=== PATIENT | male | born 1995 | race Caucasian/White ===

== ENCOUNTER 2016-11-29 17:55 | Emergency (ER) | payer OTHER ==
[2016-11-29 18:00] VITALS: BMI 19.5
[2016-11-29] MEDS ORDERED: Sodium Chloride 0.9% 1,000 ML IV STA (18:12)
[2016-11-29 18:18] LABS: URINE BILIRUBIN NEGATIVE (NEGATIVE); URINE BLOOD LARGE (NEGATIVE); URINE GLUCOSE (UA) NEGATIVE (NEGATIVE); URINE LEUKOCYTE ESTERASE NEGATIVE Leu/uL (NEGATIVE); URINE NITRATE NEGATIVE (NEGATIVE); URINE PROTEIN TRACE mg/dL (<30 mg/dL); URINE UROBILINOGEN 0.2 E.U./dL (<1 E.U./dL)
--- NOTE | 2016-11-29 18:18 | ED PDOC ---
Arrival/HPI - General Chief Complaint: Male Genitourinary Time Seen by Provider: 11/29/16 18:11 Historian: Patient - History of Present Illness Narrative History of Present Illness (Text): 11/29/16 18:11 Hiwot Wilburn is a 21 year old male, whose past medical history includes renal stones, who presents to the emergency department complaining of right flank pain radiating to his right lower quadrant since last night. Patient notes that these symptoms are identical to past renal colic symptoms. Patient has no other complaints at this time. Time/Duration: 24 hours Symptom Onset: Gradual Symptom Course: Unchanged Activities at Onset: Light Context: Home Past Medical History - Provider Review Nursing Documentation Reviewed: Yes - Infectious Disease Hx of Infectious Diseases: None - Psychiatric Hx Substance Use: No - Surgical History Hx Appendectomy: Yes - Anesthesia Hx Anesthesia: Yes Hx Anesthesia Reactions: No Hx Malignant Hyperthermia: No Family/Social History - Physician Review Nursing Documentation Reviewed: Yes Family/Social History: No Known Family HX Smoking Status: Current Some Days Smoker Hx Alcohol Use: No Hx Substance Use: No Allergies/Home Meds Allergies/Adverse Reactions: Allergies No Known Allergies Allergy (Verified 11/29/16 18:00) Physical Exam - Physical Exam Narrative Physical Exam (Text): - Review of Systems Constitutional: Normal. absent: Fatigue, Weight Change, Fevers Eyes: Normal ENT: Normal Respiratory: Normal absent: SOB, Cough, Sputum Cardiovascular: Normal absent: Chest pain, Palpitations, Syncope Gastrointestinal: Normal absent: Abdominal pain, Diarrhea, Nausea, Vomiting Genitourinary: Normal. absent: Dysuria, Frequency, Hematuria Musculoskeletal: Right flank pain radiating to right lower quadrant. absent: Arthralgias, Neck Pain Skin: Normal Neurological: Normal absent: Focal Weakness Endocrine: Normal Hemo/Lymphatic: Normal Psychiatric: Normal - Physical exam Patient appears age appropriate, speaking full sentences without difficulty. - Systems Exam Head: Present: Atraumatic, Normocephalic Pupils: Present: PERRL Extraocular Muscles: Present: EOMI Conjunctiva: Present: Normal Mouth: Present: Moist Mucous Membranes Neck: Present: Normal Range of Motion. No: MIDLINE TENDERNESS, Paraspinal Tenderness Respiratory/Chest: Present: Clear to Auscultation, Good Air Exchange. No: Respiratory Distress, Accessory Muscle Use, Tachypnic Cardiovascular: Present: Regular Rate and Rhythm, Normal S1, S2, Peripheral Pulses Present. No: Murmurs Abdomen: Right flank pain with palpation. No: Tenderness, Peritoneal Signs, Rebound, Guarding, Distention Back: Present: Normal Inspection. No: Midline Tenderness, Paraspinal Tenderness Upper Extremity: Present: Normal Inspection. No: Cyanosis, Edema Lower Extremity: Present: Normal Inspection. No: Edema Neurological: Present: GCS=15, Speech Normal, cranial nerves II through XII fully intact with no cerebellar abnormality, neuro-sensory fully intact. No focal neurological deficits. Skin: Present: Warm, Dry, Normal Color. No: Rashes Lymphatic: Present: OX3, NI, NC Psychiatric: Present: Alert, Oriented x 3, Normal Insight, Normal Concentration Vital Signs Reviewed: Yes Vital Signs Temp Pulse Resp BP Pulse Ox 11/29/16 20:45 98.1 F 88 16 99 11/29/16 18:02 98.6 F 84 18 127/84 96 Temperature: Afebrile Blood Pressure: Normal Pulse: Regular Respiratory Rate: Normal Appearance: Positive for: Well-Appearing, Non-Toxic, Comfortable Pain Distress: None Mental Status: Positive for: Alert and Oriented X 3 Medical Decision Making ED Course and Treatment: 11/29/16 18:11 Impression: 21 year old male complaining of right flank pain radiating to right lower abdominal quadrant since last night. Pt has R. flank discomfort. Plan: -- Abdomen and Pelvis CT w/o contrast -- Urinalysis -- Labs -- Toradol and IV fluids -- Reassess and disposition Prior Visits: Notes and results from previous visits were reviewed. Patient last seen in the ED on 03/08/16 for right flank pain for 2 days. Patient was discharged home. Progress Notes: 11/29/16 22:08 COMPARISON: CT - ABD PELVIS W/O PO OR IV CONT 03/08/2016 10:45:37 PM FINDINGS: Lower thorax: No acute findings. ABDOMEN: Liver: Unremarkable. Gallbladder and bile ducts: No calcified stones. No ductal dilation. Pancreas: Unremarkable. No ductal dilation. Spleen: No splenomegaly. Adrenals: No mass. Kidneys and ureters: 0.8 cm calculus within RIGHT kidney. No hydronephrosis. Stomach and bowel: No definite mural thickening. No obstruction. Appendix: Appendectomy. PELVIS: Bladder: Unremarkable. No stones. Reproductive: Unremarkable as visualized. ABDOMEN and PELVIS: Intraperitoneal space: No significant fluid collection. No free air. Bones/joints: No acute fracture. Soft tissues: Unremarkable. Vasculature: Unremarkable. No aneurysm. Lymph nodes: No pathologically enlarged lymph nodes. IMPRESSION: 1. Nonobstructing renal calculus. 2. Incidental/non-acute findings are described above. Dictated By: Tyree Arroyo MD Dictated Date/Time: 11/29/162116 Signed By: Tyree Arroyo MD Date Signed: 2116 On reeval, pt states he feels well and that his pain resolved. No n/v Urinating without difficulty states he feels comfortable being dc'd home with outpatient f/u Pt states he understands to return to the ER right away for new or worsening symptoms or for inability to f/u with PMD or specialist as instructed. Patient states that he fully agrees with and understands discharge instructions. States that he agrees with the plan and disposition. Verbalized and repeated discharge instructions and plan. I have given the patient opportunity to ask any additional questions. - Lab Interpretations Lab Results: 11/29/16 18:20 11/29/16 18:20 Lab Results 11/29/16 18:20: Sodium 141, Potassium 4.1, Chloride 104, Carbon Dioxide 25, Anion Gap 16, BUN 13, Creatinine 0.7, Est GFR ( Amer) > 60, Est GFR (Non- Af Amer) > 60, Random Glucose 82, Calcium 9.4, Total Bilirubin 0.9, AST 20, ALT 31, Alkaline Phosphatase 77, Total Protein 7.1, Albumin 4.5, Globulin 2.6, Albumin/Globulin Ratio 1.8 11/29/16 18:20: WBC 10.9, RBC 5.27, Hgb 15.9, Hct 44.9, MCV 85.2, MCH 30.2, MCHC 35.4, RDW 12.3, Plt Count 324, MPV 8.5, Gran % 55.2, Lymph % (Auto) 30.0, [place] % (Auto) 6.9 H, Eos % (Auto) 7.6 H, Baso % (Auto) 0.3, Gran # 6.00, Lymph # 3.3, [place] # 0.8 H, Eos # 0.8 H, Baso # 0.03 11/29/16 18:05: Urine Color Yellow, Urine Appearance Clear, Urine pH 6.0, Ur Specific [place] >= 1.030, Urine Protein Trace H, Urine Glucose (UA) Negative, Urine Ketones Negative, Urine Blood Large H, Urine Nitrate Negative, Urine Bilirubin Negative, Urine Urobilinogen 0.2, Ur Leukocyte Esterase Negative, Urine RBC 25 - 30, Urine WBC 1 - 3, Ur Epithelial Cells 1 - 3, Urine Bacteria Mod I have reviewed the lab results: Yes - RAD Interpretation Radiology Orders: 11/29/16 18:12 ABD & PELVIS W/O PO OR IV CONT [CT] Stat - Medication Orders Current Medication Orders: Discontinued Medications Sodium Chloride (Sodium Chloride 0.9%) 1,000 mls @ 1,000 mls/hr IV .Q1H STA Stop: 11/29/16 19:11 Last Admin: 11/29/16 18:25 Dose: 1,000 mls/hr Ketorolac Tromethamine (Toradol) 30 mg IVP STAT STA Stop: 11/29/16 18:13 Last Admin: 11/29/16 18:25 Dose: 30 mg - Scribe Statement The provider has reviewed the documentation as recorded by the Tran Rosas Provider Scribe Attestation: All medical record entries made by the Tran were at my direction and personally dictated by me. I have reviewed the chart and agree that the record accurately reflects my personal performance of the history, physical exam, medical decision making, and the department course for this patient. I have also personally directed, reviewed, and agree with the discharge instructions and disposition. Disposition/Present on Arrival - Present on Arrival Any Indicators Present on Arrival: No History of DVT/PE: No History of Uncontrolled Diabetes: No Urinary Catheter: No History of Decub. Ulcer: No History Surgical Site Infection Following: None - Disposition Have Diagnosis and Disposition been Completed?: Yes Diagnosis: Renal colic Disposition: HOME/ ROUTINE Disposition Time: 22:17 Patient Plan: Discharge Condition: GOOD Discharge Instructions (ExitCare): Renal Colic (ED) Additional Instructions: PLEASE RETURN TO THE EMERGENCY DEPARTMENT FOR NEW OR WORSENING SYMPTOMS. RETURN RIGHT AWAY IF YOU CANNOT FOLLOW UP WITH YOUR PRIMARY CARE DOCTOR, CLINIC, OR SPECIALIST IN 1-2 DAYS. Prescriptions: Ibuprofen [Motrin] 600 mg PO Q8 PRN #12 tab PRN Reason: Pain, Moderate (4-7) Tamsulosin [Flomax] 0.4 mg PO DAILY #4 cap Referrals: Segun Davis MD [Staff Provider] - Follow up with primary Joao Florence MD [Staff Provider] - Follow up with primary Forms: [employer] (Belizean)
[2016-11-29 18:29] LABS: BASO # 0.03 K/mm3 (0.0-2.0); BASO % 0.3 % (0.0-3.0); EOS # 0.8 (0.0-0.7); EOS % 7.6 % (1.5-5.0); GRAN % 55.2 % (50.0-68.0); HEMOGLOBIN 15.9 g/dL (14.0-18.0); LYMPH # 3.3 (1.2-3.4); MEAN CELL VOLUME 85.2 fl (80.0-105.0); MEAN CORPUSCULAR HEMOGLOBIN 30.2 pg (25.0-35.0); MEAN CORPUSCULAR HGB CONC 35.4 g/dl (31.0-37.0); MEAN PLATELET VOLUME 8.5 fl (7.0-11.0); MONO # 0.8 (0.1-0.6); MONO % 6.9 % (1.0-6.0); PLATELET COUNT 324 10^3/uL (120.0-450.0); RBC 5.27 10^6/uL (3.5-6.1); RED CELL DISTRIBUTION WIDTH 12.3 % (11.5-14.5); WHITE BLOOD COUNT 10.9 10^3/ul (4.5-11.0)
[2016-11-29 18:35] LABS: URINE APPEARANCE CLEAR (CLEAR); URINE COLOR YELLOW (YELLOW)
[2016-11-29 18:43] LABS: ALB/GLOB RATIO 1.8 (1.1-1.8); ALBUMIN 4.5 g/dL (3.0-4.8); ALT/SGPT 31 U/L (7-56); AST/SGOT 20 U/L (15-59); BLOOD UREA NITROGEN 13 mg/dL (7-21); CALCIUM 9.4 mg/dL (8.4-10.5); GFR AFRICAN-AMERICAN > 60; GFR NON-AFRICAN AMERICAN > 60
[2016-11-29 19:00] LABS: URINE BACTERIA MOD (NEG); URINE RBC 25 - 30 /hpf (0-2)
[2016-11-29 20:46] VITALS: TEMP 98.1
--- NOTE | 2016-11-29 21:17 | CT ---
EXAM: CT Abdomen and Pelvis Without Intravenous Contrast CLINICAL HISTORY: 21 years old, male; Pain; Abdominal pain; Localized; Right; Prior surgery; Surgery type: Appendectomy; Additional info: Renal colic TECHNIQUE: Axial computed tomography images of the abdomen and pelvis without intravenous contrast. All CT scans at this facility use one or more dose reduction techniques, viz.: automated exposure control; ma/kV adjustment per patient size (including targeted exams where dose is matched to indication; i.e. head); or iterative reconstruction technique. Coronal and sagittal reformatted images were created and reviewed. COMPARISON: CT - ABD PELVIS W/O PO OR IV CONT 03/08/2016 10:45:37 PM FINDINGS: Lower thorax: No acute findings. ABDOMEN: Liver: Unremarkable. Gallbladder and bile ducts: No calcified stones. No ductal dilation. Pancreas: Unremarkable. No ductal dilation. Spleen: No splenomegaly. Adrenals: No mass. Kidneys and ureters: 0.8 cm calculus within RIGHT kidney. No hydronephrosis. Stomach and bowel: No definite mural thickening. No obstruction. Appendix: Appendectomy. PELVIS: Bladder: Unremarkable. No stones. Reproductive: Unremarkable as visualized. ABDOMEN and PELVIS: Intraperitoneal space: No significant fluid collection. No free air. Bones/joints: No acute fracture. Soft tissues: Unremarkable. Vasculature: Unremarkable. No aneurysm. Lymph nodes: No pathologically enlarged lymph nodes. IMPRESSION: 1. Nonobstructing renal calculus. 2. Incidental/non-acute findings are described above.
[2016-11-29 22:34] VITALS: BP 119/68; PULSE 61
[2016-11-29 22:48] VITALS: RESP 16; O2SAT 98
== END 2016-11-29 22:47 | disposition home or self-care (01) ==
LOC: ED 17:55
DX: N23 Unspecified renal colic (principal)
CPT/HCPCS: 74176; 80053; 81001; 85025; 96374; 99284; J1885; J7040

== ENCOUNTER 2016-11-30 12:32 | Emergency (ER) | payer OTHER ==
[2016-11-30 12:33] VITALS: BMI 19.5
== END 2016-11-30 12:41 | disposition left against medical advice (07) ==
LOC: ED 12:32
DX: Z02.89 Encounter for other administrative examinations (principal); R10.9 Unspecified abdominal pain

== ENCOUNTER 2016-12-03 23:25 | Emergency (ER) | payer OTHER ==
[2016-12-03 23:26] VITALS: BMI 19.5
[2016-12-04] MEDS ORDERED: Lidocaine 5% Patch TD STA (00:28)
--- NOTE | 2016-12-04 00:33 | ED PDOC ---
Arrival/HPI - General Chief Complaint: Back Pain Time Seen by Provider: 12/04/16 00:17 Historian: Patient - History of Present Illness Narrative History of Present Illness (Text): 12/04/16 00:25 Hiwot Wilburn is a 21 year old male, whose past medical history includes renal stones, presents to the emergency department complaining of right lower back pain since four days ago. Patient was seen on 11/29/2016 for the pain; he had a CT a/p showing an 8mm renal nonobstructive stone in the kidney and was d/c on ibuprofen and flomax and f/u . He says he was unable to f/u and is not taking any medication, including the ibuprofen. He reports persistence of pain throughout the day and radiates down his right leg. Patient notes having a subjective and mild dysuria. Patient denies fall, trauma, chest pain, shortness of breath, headache, chills, cough, nausea, vomiting, diarrhea, bowel or bladder incontinence/retention, or other complaints. Time/Duration: < week (four days) Symptom Onset: Sudden Symptom Course: Unchanged Modifying Factors (Text): pain radiates down the right leg Associated Symptoms (Text): fever and dysuria Past Medical History - Provider Review Nursing Documentation Reviewed: Yes - Infectious Disease Hx of Infectious Diseases: None - Psychiatric Hx Substance Use: No - Surgical History Hx Appendectomy: Yes - Anesthesia Hx Anesthesia: Yes Hx Anesthesia Reactions: No Hx Malignant Hyperthermia: No Family/Social History - Physician Review Nursing Documentation Reviewed: Yes Family/Social History: Unknown Family HX Smoking Status: Current Some Days Smoker Hx Alcohol Use: No Hx Substance Use: No Allergies/Home Meds Allergies/Adverse Reactions: Allergies No Known Allergies Allergy (Verified 11/29/16 18:00) Review of Systems - Review of Systems Constitutional: Fevers (subjective) Respiratory: absent: SOB Cardiovascular: absent: Chest Pain Gastrointestinal: Abdominal Pain (right lateral side). absent: Nausea, Vomiting Genitourinary Male: Dysuria Musculoskeletal: Back Pain (right lower side) Neurological: absent: Headache Physical Exam Vital Signs Reviewed: Yes Vital Signs Temp Pulse Resp BP Pulse Ox 12/04/16 00:27 98.2 F 76 18 132/85 99 Temperature: Afebrile Blood Pressure: Normal Pulse: Regular Respiratory Rate: Normal Appearance: Positive for: Well-Appearing, Non-Toxic, Comfortable Pain Distress: None Mental Status: Positive for: Alert and Oriented X 3 - Systems Exam Head: Present: Atraumatic, Normocephalic Pupils: Present: PERRL Conjunctiva: Present: Normal Mouth: Present: Moist Mucous Membranes Pharnyx: Present: Normal. No: ERYTHEMA, EXUDATE Neck: Present: Normal Range of Motion Respiratory/Chest: Present: Clear to Auscultation, Good Air Exchange. No: Respiratory Distress, Accessory Muscle Use Cardiovascular: Present: Regular Rate and Rhythm, Normal S1, S2. No: Murmurs Abdomen: Present: Normal Bowel Sounds. No: Tenderness, Distention, Peritoneal Signs Back: Present: Normal Inspection. No: CVA Tenderness Upper Extremity: Present: Normal Inspection. No: Cyanosis, Edema Lower Extremity: Present: Normal Inspection, Other (reproduction of back pain with hip flexion and external rotation). No: Edema Neurological: Present: GCS=15, CN II-XII Intact, Speech Normal Skin: Present: Warm, Dry, Normal Color. No: Rashes Psychiatric: Present: Alert, Oriented x 3, Normal Insight, Normal Concentration Medical Decision Making ED Course and Treatment: 12/04/16 00:25 Impression: 21 year old male with rright lower back pain that radiates down the right leg. Differential: musculoskeletal pain with possible radiculopathy vs renal colic Plan: -- Urinalysis -- Lidoderm, Toradol, Valium -- Reassess and disposition Prior Visits: Notes and results from previous visits were reviewed. On 11/29/2016 patient came in complaining of back pain. Patient was discharged home. Progress Notes: 12/04/16 02:33 Patient received lidoderm and toradol and diazepam and reports full resolution pain. CT a/p result from 11/29/16 reviewed; though a renal stone was present, it was in the kidney with no evidence of hydronephrosis, so it may not be the etiology of the pain; furthermore, his pain is reproducible with leg movements and is radiating down the leg, suggestive of possible radiculopathy. Urine shows no UTI. Will d/c him on nsaid, muscle relaxant and lidoderm and have him f/u in the medical clinic. - Lab Interpretations Lab Results: Lab Results 12/04/16 00:35: Urine Color Yellow, Urine Appearance Clear, Urine pH 6.0, Ur Specific [place] 1.020, Urine Protein Negative, Urine Glucose (UA) Negative, Urine Ketones Negative, Urine Blood Trace-intact H, Urine Nitrate Negative, Urine Bilirubin Negative, Urine Urobilinogen 1.0 H, Ur Leukocyte Esterase Negative, Urine RBC 1 - 3, Urine WBC 0 - 2, Ur Epithelial Cells 0 - 2, Urine Bacteria Rare - Medication Orders Current Medication Orders: Discontinued Medications Diazepam (Valium) 2 mg PO ONCE STA PRN Reason: Protocol Stop: 12/04/16 00:29 Last Admin: 12/04/16 02:50 Dose: 2 mg Ketorolac Tromethamine (Toradol) 60 mg IM STAT STA Stop: 12/04/16 00:28 Last Admin: 12/04/16 02:49 Dose: 60 mg Lidocaine (Lidoderm) 1 ea TD ONCE STA Stop: 12/04/16 00:29 Last Admin: 12/04/16 02:50 Dose: 1 ea - Scribe Statement The provider has reviewed the documentation as recorded by the Scribe 12/03/2016 Gifty Singer Provider Scribe Attestation: All medical record entries made by the Scribe were at my direction and personally dictated by me. I have reviewed the chart and agree that the record accurately reflects my personal performance of the history, physical exam, medical decision making, and the department course for this patient. I have also personally directed, reviewed, and agree with the discharge instructions and disposition. Disposition/Present on Arrival - Present on Arrival Any Indicators Present on Arrival: No History of DVT/PE: No History of Uncontrolled Diabetes: No Urinary Catheter: No History of Decub. Ulcer: No History Surgical Site Infection Following: None - Disposition Have Diagnosis and Disposition been Completed?: Yes Diagnosis: Back pain Disposition: HOME/ ROUTINE Disposition Time: 03:00 Patient Plan: Discharge Condition: GOOD Additional Instructions: Avoid heavy lifting. Follow up with urology and the medical clinic. Drink plenty of fluids. Return to the emergency department if any new concerning symptoms. Prescriptions: Baclofen [Lioresal] 1 cap PO TID PRN #15 tab PRN Reason: Pain, Moderate (4-7) Lidocaine 5% [Lidoderm] 1 ea TD DAILY #10 patch Naproxen [Naprosyn] 500 mg PO BID PRN #20 tab PRN Reason: Pain Referrals: [facility] at [facility] [place]Outside] - Follow up with primary [facility] [Outside] - Follow up with primary Segun Davis MD [Staff Provider] - Follow up with primary Forms: [employer] (Wallisian)
[2016-12-04 00:34] VITALS: BP 132/85; PULSE 76; RESP 18; TEMP 98.2; O2SAT 99
[2016-12-04 00:56] LABS: URINE BILIRUBIN NEGATIVE (NEGATIVE); URINE BLOOD TRACE-INTACT (NEGATIVE); URINE GLUCOSE (UA) NEGATIVE (NEGATIVE); URINE KETONE NEGATIVE (NEGATIVE); URINE LEUKOCYTE ESTERASE NEGATIVE Leu/uL (NEGATIVE); URINE PROTEIN NEGATIVE mg/dL (<30 mg/dL)
[2016-12-04 01:03] LABS: URINE APPEARANCE CLEAR (CLEAR); URINE COLOR YELLOW (YELLOW)
[2016-12-04 01:08] LABS: URINE BACTERIA RARE (NEG); URINE EPITHELIAL CELLS 0 - 2 /hpf (0-5); URINE WBC 0 - 2 /hpf (0-6)
== END 2016-12-04 03:16 | disposition home or self-care (01) ==
LOC: ED 23:25
DX: M54.9 Dorsalgia, unspecified (principal)
CPT/HCPCS: 81001; 96372; 99282; J1885